=== PATIENT | female | born 1980 ===

== ENCOUNTER 2017-07-20 17:11 | Emergency (ER) | payer BC, MEDICAID ==
[2017-07-20 17:11] VITALS: BMI 32.9
[2017-07-20 17:30] VITALS: BP 144/96; PULSE 94; RESP 20; TEMP 98.4; O2SAT 99
--- NOTE | 2017-07-20 17:58 | ED PDOC ---
HPI: Female Pain Time Seen by Provider: 07/20/17 17:45 Chief Complaint (Nursing): Female Genitourinary Chief Complaint (Provider): Female Genitourinary History Per: Patient, Family History/Exam Limitations: no limitations Onset/Duration Of Symptoms: Days (1) Current Symptoms Are (Timing): Still Present Severity: Moderate Quality Of Discomfort: Pressure Associated Symptoms: Nausea, Urinary Symptoms. denies: Fever, Vomiting Alleviating Factors: None Additional Complaint(s): 37 y/o female presents to the ED complaining of hematuria, dysuria and urinary frequency x 1 day. Symptoms are consistent with UTI. Patient was diagnosed with UTI a week ago and as given antibiotics for only 3 days by the urgent care clinic; pt states she was prescribed bactrim. Patient did feel improvement after 3 days of the antibiotics but the symptoms resumed in the last 24 hours. Reports increasing left flank pain, rating 8/10, + mild nausea; NO vomiting, fever, chills, sweats, chest pain, shortness of breath, palpitations, bowel changes or any further medical complaints. Denies fall/trauma/sick contact. pt is here for further eval pt's without other complaints pt has had prior UTI, last episode was ~ 6month-1 year ago PMD:Joni Cullen MD Past Medical History Reviewed: Historical Data, Nursing Documentation, Vital Signs Vital Signs: Last Vital Signs Temp 98.4 F 07/20/17 17:27 Pulse 94 H 07/20/17 17:27 Resp 20 07/20/17 17:27 BP 144/96 H 07/20/17 17:27 Pulse Ox 99 07/20/17 17:27 - Family History Family History: States: Unknown Family Hx - Living Arrangements Living Arrangements: With Family - Social History Current smoker - smoking cessation education provided: No Ex-Smoker (has not smoked in the last 12 months): No Alcohol: None Drugs: Denies - Home Medications Home Medications: Ambulatory Orders Medication Instructions Recorded Famotidine [Pepcid] 20 mg PO DAILY #4 tab 08/20/14 Levofloxacin [Levaquin] 500 mg PO 08/20/14 Prednisone 40 mg PO DAILY #8 tab 08/20/14 Ibuprofen [Motrin] 400 mg PO QID PRN #30 tab 07/20/17 Nitrofurantoin Macrocrystals 100 mg PO BID #19 cap 07/20/17 [Macrobid] Ondansetron ODT [Zofran ODT] 4 mg PO TID PRN #10 odt 07/20/17 Phenazopyridine HCl [Pyridium] 100 mg PO TID PRN #6 tablet 07/20/17 oxyCODONE/Acetaminophen [Percocet 1 tab PO TID PRN #10 tab 07/20/17 5/325 mg Tab] - Allergies Allergies/Adverse Reactions: Allergies Allergy/AdvReac Type Severity Reaction Status Date / Time levofloxacin [From Levaquin] Allergy RASH Verified 07/20/17 17:26 Review of Systems ROS Statement: Except As Marked, All Systems Reviewed And Found Negative (As per HPI, otherwise negative) Constitutional: Negative for: Fever, Chills, Sweats ENT: Negative for: Ear Pain, Nose Pain Cardiovascular: Negative for: Chest Pain, Palpitations Respiratory: Negative for: Shortness of Breath Gastrointestinal: Positive for: Nausea, Abdominal Pain (left flank pain). Negative for: Vomiting, Other (bowel changes) Genitourinary Female: Positive for: Dysuria, Frequency, Hematuria. Negative for : Vaginal Discharge, Vaginal Bleeding Musculoskeletal: Negative for: Neck Pain, Back Pain Skin: Negative for: Rash Neurological: Negative for: Weakness, Headache, Dizziness Physical Exam - Reviewed Nursing Documentation Reviewed: Yes Vital Signs Reviewed: Yes (elevated BP) - Physical Exam Comments: General: alert/awake, GCS = 15, oriented x 3, resting in bed, uncomfortable, cooperative, interactive; NAD Head: NC/AT EYE: PERRLA, EOMI, sclera anicteric, no nystagmus, no photophobia Facial: WNL Oral: uvula/tongue are midline, no exudate/lesions, no drooling/stridor, no dysphonia; intact dentitions; moist oral mucosa NECK: intact ROM, no midline tenderness, no nuchal rigidity, no meningeal signs ; no step off Chest: CTA b/l, no w/r/r; no tachypenia, no accessory muscle use noted Cardiac: +S1, +S2, no m/r/r, no tachycardia Abdominal: +BS, soft/nd/nt, well nourished patient; no masses/rebound/guarding/ rigidity; no moncada's sign, no mcburney's point tenderness Extremities: intact ROM, strength 5/5 grossly intact in all limbs, neurovasc intact b/l; + ambulatory; reflex +2/2 BACK: no step off, no midline tenderness, NO crepitus, no gross deformities noted; Intact ROM; + mild left CVAT SKIN: cap refill < 1 sec, no ulcerations, no petechiae, no rashes NEURO: CNII-XII WNL, no facial asymmetries, no slurr speech, oriented x 3 NIH stroke scale ~ 0 Psych: normal insight, normal affect; follows command with ease - Laboratory Results Interpretation Of Abnormal: + UTI Urine POC: Negative - ECG O2 Sat by Pulse Oximetry: 99 (RA) Pulse Ox Interpretation: Normal - Progress ED Course And Treament: pt is doing well pt is comfortable pt NAD pt is made aware of her medical results pt is encouraged fluids pt will f/u as directed pt will be discharged home Re-evaluation Time: 19:02 Condition: Improved Medical Decision Making Medical Decision Making: Time: 18:00 Initial Impression: urinary tract infection Plan: test Macrobid 100mg PO Oxycodone/acetaminophen 1tab PO Toradol 30mg IM Odansetron ODT 4mg PO Urinalysis Reevaluation Scribe Attestation: Documented by Jose Raul Acosta acting as a scribe for Tio Valera MD. Scribe Attestation: All medical record entries made by the Scribe were at my direction and personally dictated by me. I have reviewed the chart and agree that the record accurately reflects my personal performance of the history, physical exam, medical decision making, and the department course for this patient. I have also personally directed, reviewed, and agree with the discharge instructions and disposition. Disposition - Clinical Impression Clinical Impression: UTI (urinary tract infection) - Patient ED Disposition Is Patient to be Admitted: No Counseled Patient/Family Regarding: Studies Performed, Diagnosis, Rx Given - Disposition Referrals: PCP,NO [Non-Staff] - Antwan Almanzar Jr., MD [Staff Provider] - [email or web address] [place] [Outside] [facility] [Outside] [facility] [Outside] Disposition: Routine/Home Disposition Time: 18:39 Condition: STABLE Additional Instructions: Make sure to see your doctor in 1-2 days DRINK PLENTY OF FLUIDS take your medications as prescribed RETURN TO ED IF worse pain, cant breath, persistent vomiting, high fever >101- 102 for hours, altered behavior, slurr speech, facial changes, focal weakness ( arm/leg or both), unable to urinate, heavy/persistent bleeding, passing out, chest pain, or other medical emergencies Prescriptions: Ibuprofen [Motrin] 400 mg PO QID PRN #30 tab PRN Reason: Pain, Mild (1-3) Nitrofurantoin Macrocrystals [Macrobid] 100 mg PO BID #19 cap Ondansetron ODT [Zofran ODT] 4 mg PO TID PRN #10 odt PRN Reason: Nausea/Vomiting oxyCODONE/Acetaminophen [Percocet 5/325 mg Tab] 1 tab PO TID PRN #10 tab PRN Reason: Pain, Moderate (4-7) Phenazopyridine HCl [Pyridium] 100 mg PO TID PRN #6 tablet PRN Reason: Bladder Spasm Instructions: Urinary Tract Infections in Adults Forms: [facility] (Czech) Print Language: [id number]
[2017-07-20] MEDS ORDERED: Oxycodone/Acetaminophen 5/325 mg Tab PO STA (18:01)
[2017-07-20] MEDS ORDERED: Oxycodone/Acetaminophen 5/325 mg Tab ONE (18:16)
[2017-07-20 18:33] LABS: SQUAMOUS EPITHIAL 13 /hpf (0-5); URINE BACTERIA OCC (<OCC); URINE BILIRUBIN NEGATIVE (NEGATIVE); URINE BLOOD MODERATE (NEGATIVE); URINE CLARITY CLOUDY (Clear); URINE COLOR BLUE (YELLOW); URINE GLUCOSE (UA) NEG (Normal); URINE LEUKOCYTE ESTERASE MOD Leu/uL (Negative); URINE PROTEIN 30 mg/dL (NEGATIVE)
== END 2017-07-20 19:09 | disposition home or self-care (01) ==
LOC: H.ER 17:11
DX: N39.0 Urinary tract infection, site not specified (principal)
CPT/HCPCS: 81003; 81025; 96372; 99283; J1885